=== PATIENT | female | born 1985 | race Caucasian/White ===

== ENCOUNTER 2021-09-16 18:21 | Emergency (ER) | payer OTHER, MEDICAID, SELFPAY ==
--- NOTE | 2021-09-16 18:28 | ED.URI ---
HPI - URI/Sore Throat General Chief Complaint: Upper Respiratory Infection Stated Complaint: ear/congestion/fever/coughing Time Seen by Provider: 09/16/21 18:28 Source: patient and RN notes reviewed History of Present Illness HPI Narrative: Patient is a 35-year-old female who presents the urgent care with complaints of ear pain, congestion, fever and persistent cough. Patient states that she went to the ER per ambulance last night in which she got a DuoNeb, chest x-rays and a shot of a steroid. Patient states that she was able to cough stuff up last night but it now feels like concrete . Patient states that her chest x-ray was negative but they did not send her home on any medications and she feels more congested this morning. Denies of any shortness of breath or chest pain. No other acute complaints. No acute distress noted. Patient aware of the plan of care. Some parts of this dictation were generated by voice recognition software and may contain typographical and/or grammatical inaccuracies. Related Data Home Medications Medication Instructions Recorded Confirmed azathioprine 50 mg PO DAILY 09/16/21 09/16/21 budesonide 0.5 mg INHALATION QID 09/16/21 09/16/21 omeprazole 40 mg PO DAILY 09/16/21 09/16/21 valacyclovir 50 mg PO DAILY 09/16/21 09/16/21 Allergies Allergy/AdvReac Type Severity Reaction Status Date / Time amoxicillin Allergy Mild HIVES Unverified 07/20/12 10:25 sulfamethoxazole Allergy Verified 07/20/12 10:25 trimethoprim Allergy Verified 07/20/12 10:25 POTASSIUM CLAVULANATE Allergy Mild HIVES Uncoded 07/20/12 10:25 CITALOPRAM HYDROBROMIDE AdvReac hallucinati Uncoded 07/20/12 10:25 ons DULOXETINE HCL AdvReac Uncoded 07/20/12 10:25 Review of Systems Review of Systems: CONSTITUTIONAL: Denies fever, chills, or sweats. EYES: Denies visual changes, redness, or discharge. ENT: Reports of bilateral ear pain, congestion CARDIOVASCULAR: Denies chest pain, palpitations, or edema. RESPIRATORY: Reports a persistent cough and wheezes GASTROINTESTINAL: Denies abdominal pain, nausea, vomiting, or diarrhea. GENITOURINARY: Denies dysuria or hematuria. SKIN: Denies rash or itching. MUSCULOSKELETAL: Denies back pain, joint pain, or myalgia. NEUROLOGIC: Denies headache, numbness, or weakness. All other systems reviewed are negative, except as documented in HPI. PMFSH Comments At the time of my signature, I reviewed and agree with the nursing past medical, surgical, social, and family history. There is no relevant family history pertinent to the patient complaint. Exam Narrative: GENERAL: This is a well-nourished, well-developed patient, in no apparent distress. HEAD: normocephalic, atraumatic. EYES: PERRL. Sclera clear/white. Vision is grossly intact. EARS: External ears normal, auditory canals clear and without drainage, fluid noted behind bilateral TMs without otitis, TMs normal without perforation. Hearing grossly intact. NOSE: External nose normal with no obvious nasal discharge, nares without redness, no rhinorrhea. THROAT: Mucous membranes moist, posterior pharynx clear. Moderate postnasal drainage NECK: Neck supple CARDIOVASCULAR: Regular rate and rhythm without murmurs, gallops, or rubs. RESPIRATORY: Expiratory wheezes to bilateral upper lobes SKIN: warm, intact with no suspicious lesions or rash, good texture and turgor. NEURO: awake, alert, and oriented to person, place and time. There were no obvious focal neurologic abnormalities. EXTREMITIES: No clubbing, cyanosis, or edema. Course Course Level of Care: Express Care Visit Vital Signs Vital signs: Vital Signs Temperature 99.2 F 09/16/21 18:38 Pulse Rate 111 H 09/16/21 18:38 Respiratory Rate 18 09/16/21 18:38 Blood Pressure 151/91 H 09/16/21 18:38 Pulse Oximetry 100 09/16/21 18:38 Temperature 99.2 F 09/16/21 18:38 Pulse Rate 111 H 09/16/21 18:38 Respiratory Rate 18 09/16/21 18:38 Blood Pressure 151/91 H 09/16/21 18
[2021-09-16 18:38] VITALS: BP 151/91; PULSE 111; RESP 18; TEMP 37.3; O2SAT 100
== END 2021-09-16 18:55 | disposition home or self-care (01) ==
PROVIDERS: Emergency Provider Nurse Practitioner Family; PCP Family Medicine
DX: J40 Bronchitis, not specified as acute or chronic (principal)
CPT/HCPCS: 99203; G0463

== ENCOUNTER 2023-08-17 14:27 | Emergency (ER) | payer OTHER, SELFPAY ==
[2023-08-17 14:36] VITALS: BP 136/83; PULSE 115; RESP 18; TEMP 37.3; O2SAT 100
[2023-08-17 14:38] VITALS: BP 136/83; PULSE 115; RESP 18; TEMP 37.3; O2SAT 100
--- NOTE | 2023-08-17 15:04 | ED.GENADULT ---
HPI - General Adult General Chief complaint: Skin/Abscess/Foreign Body Stated complaint: Armpits swollen Source: patient Mode of arrival: ambulatory Limitations: no limitations History of Present Illness HPI narrative: Patient presents for evaluation of painful swelling lesions to bilateral axillary regions for the last 4 days. She states she has a history of similar symptoms and was told she had MRSA in the past. She does shave her axillary regions but has not done so since symptom onset. She has hibiclens at home. No fever, chills, nausea, vomiting or drainage from the area. She is not diabetic. She tries to avoid NSAIDs due to history of gastric bypass. Related Data Home Medications Medication Instructions Recorded Confirmed azathioprine 50 mg tablet 50 mg PO DAILY 09/16/21 09/16/21 budesonide 0.5 mg/2 mL suspension 0.5 mg inhalation QID 09/16/21 09/16/21 for nebulization omeprazole 40 mg capsule,delayed 40 mg PO DAILY 09/16/21 09/16/21 release valacyclovir 500 mg tablet 50 mg PO DAILY 09/16/21 09/16/21 Allergies Allergy/AdvReac Type Severity Reaction Status Date / Time amoxicillin Allergy Mild HIVES Unverified 07/20/12 10:25 hydromorphone [From Dilaudid] Allergy Unknown Verified 08/17/23 14:37 POTASSIUM CLAVULANATE Allergy Mild HIVES Uncoded 07/20/12 10:25 CITALOPRAM HYDROBROMIDE AdvReac hallucinati Uncoded 07/20/12 10:25 ons DULOXETINE HCL AdvReac Unknown Uncoded 08/17/23 14:37 Review of Systems Review of Systems: CONSTITUTIONAL: Denies fever, chills, or sweats. EYES: Denies visual changes, redness, or discharge. ENT: Denies rhinorrhea, congestion, sore throat, or otalgia. CARDIOVASCULAR: Denies chest pain, palpitations, or edema. RESPIRATORY: Denies cough or dyspnea. GASTROINTESTINAL: Denies abdominal pain, nausea, vomiting, or diarrhea. GENITOURINARY: Denies dysuria or hematuria. SKIN: Reports painful swollen lesions to bilateral axillary regions MUSCULOSKELETAL: Denies back pain, joint pain, or myalgia. NEUROLOGIC: Denies headache, numbness, dizziness, or weakness. PSYCHIATRIC: Denies anxiety or depression. [facility] Past Medical History Medical History Abscess GERD (gastroesophageal reflux disease) Herpes simplex Surgical History Surgical History (Updated 08/17/23 @ 16:18 by Louis Marie [facility], ) History of gastric bypass Family History Family History Mother Family history non-contributory Social History Social History Living arrangements: with family Gender identity (if verbalized by the patient): Female Spiritual care concerns: No Exam Narrative: GENERAL: Well-appearing, well-nourished, and in no acute distress. HEAD: Normocephalic, atraumatic. EYES: PERRLA and EOMI. ENT: Nares clear, no rhinorrhea or epistaxis. Mucous membranes moist. Oropharynx without tonsillar hypertrophy exudate or other lesions. Bilateral TMs pearly scott nonbulging NECK: Supple. No adenopathy or masses. No carotid bruits or JVD CHEST: Clear to auscultation. No respiratory distress. No wheezes rales or rhonchi HEART: Regular rate and rhythm. No murmur heard. Normal peripheral pulses. ABDOMEN: Soft, nontender, nondistended, normal active bowel sounds. EXTREMITIES: Normal range of motion. No edema. SKIN: Therefore slightly raised indurated areas of erythema to the right axillary region there were less than 4 cm in size. There is an approximately 3.5 cm raised area of erythema to the left axillary region without underlying induration. No fluctuance. NEURO: No focal deficits. Alert and oriented x3. PSYCH: Normal mood and affect. Course Course Emergency Course: This is a 37-year-old female who presented for evaluation of recurrent skin infections. She was tachycardic on arrival but heart rate normali
== END 2023-08-17 16:21 | disposition home or self-care (01) ==
PROVIDERS: Emergency Provider Nurse Practitioner; PCP Family Medicine
DX: L02.818 Cutaneous abscess of other sites (principal)
CPT/HCPCS: 99213; G0463